=== PATIENT | male | born 2000 | race Caucasian/White ===

== ENCOUNTER 2019-10-30 04:41 | Inpatient (IN) ==
[2019-10-30] MEDS ORDERED: LIDOCAINE INFILT ONE (04:52)
[2019-10-30] MEDS ORDERED: EPINEPHRINE INFILT ONE (04:52)
[2019-10-30 05:25] LABS: Basophils % 0.2 %; Eosinophils # 0.1 K/mcL (0.0-0.6); Eosinophils % 0.7 %; Hematocrit 45.1 % (37.5-50.1); Hemoglobin 15.2 g/dL (12.9-16.9); Immature Granulocytes % 0.3 % (0-4); Lymphocytes # 2.2 K/mcL (0.6-4.6); Lymphocytes % 24.7 %; Mean Corpuscular HGB Conc 33.7 g/dL (31.6-35.5); Mean Corpuscular Volume 85.9 fL (83.0-100.0); Mean Platelet Volume 11.7 fL (9.4-12.4); Monocytes # 0.8 K/mcL (0.0-1.3); Monocytes % 9.6 %; Neutrophils # 5.7 K/mcL (1.6-8.9); Platelet Count 257 K/mcL (140-400); Red Blood Count 5.25 M/mcL (4.19-5.50); Red Cell Distribution Width 12.5 % (11.5-14.5); Segmented Neutrophils % 64.5 %; White Blood Count 8.8 K/mcL (4.3-11.1)
[2019-10-30] MEDS ORDERED: Lidocaine/EPI 1:100k 1% 30 ML VIAL INFILT ONE (05:25)
[2019-10-30] MEDS ORDERED: Bacitracin OINT PKT TP ONE (05:35)
[2019-10-30 05:47] LABS: Acetaminophen < 10 mcg/mL (10-20); BUN/Creatinine Ratio 8 (6-26); Blood Urea Nitrogen 7 mg/dL (6-20); Calcium 10.2 mg/dL (8.6-10.3); Carbon Dioxide 29 mEq/L (23-29); Chloride 99 mEq/L (98-107); Ethanol < 10 mg/dL (Less than 10); Glucose 104 mg/dL (70-105); Osmolality,Calculated 284 (280-300); Potassium 3.7 mEq/L (3.5-5.1); Salicylate < 2.5 mg/dL (15.0-30.0); Sodium 138 mEq/L (136-145); eGFR For African Americans > 60 (> 60); eGFR For Non-African Americans > 60 (> 60)
[2019-10-30 05:55] LABS: Amphetamine Screen,Urine Negative ng/mL (Cutoff=1000); Barbiturate Screen,Urine Negative ng/mL (Cutoff=200); Benzodiazepines Screen,Urine Negative ng/mL (Cutoff=200); Cannabinoid Screen,Urine Negative ng/mL (Cutoff = 50); Cocaine Screen,Urine Negative ng/mL (Cutoff= 300); Opiate Screen,Urine Negative ng/mL (Cutoff=300); Phencyclidine Screen,Urine Negative ng/mL (Cutoff=25)
[2019-10-30] MEDS ORDERED: *HR* LORazepam 1 MG TABLET PO PRN (07:57)
[2019-10-30] MEDS ORDERED: Acetaminophen 325 MG TABLET PO PRN (07:57)
[2019-10-30] MEDS ORDERED: Mag Hydrox/Al Hydrox/Simeth 30 ML UDC PO PRN (07:57)
[2019-10-30] MEDS ORDERED: MOM Conc 10 ML UD.LIQ PO PRN (07:57)
[2019-10-30] MEDS ORDERED: haloperidoL 5 MG TABLET PO PRN (07:57)
[2019-10-30] MEDS ORDERED: Haloperidol Lactate 5 MG/ML VIAL IM PRN (07:57)
[2019-10-30] MEDS ORDERED: QUEtiapine Fumarate 25 MG TABLET PO PRN (07:57)
[2019-10-30] MEDS ORDERED: *HR* LORazepam 2 MG/ML VIAL IM PRN (07:57)
[2019-10-30] MEDS ORDERED: Melatonin 3 MG TABLET PO SCH (21:00)
[2019-10-31 10:21] VITALS: BP 119/75
== END 2019-10-31 15:10 | disposition home or self-care (01) | DRG 384 ==
LOC: EMEROOARM 04:41 → 1ANU 07:55
PROVIDERS: ADMIT Psychiatry & Neurology Psychiatry; ATTEND Psychiatry & Neurology Psychiatry

== ENCOUNTER 2021-10-17 11:11 | Inpatient (IN) ==
[2021-10-17 11:54] LABS: Basophils % 0.4 %; Eosinophils # 0.2 K/mcL (0.0-0.6); Eosinophils % 2.4 %; Hemoglobin 14.7 g/dL (12.9-16.9); Immature Granulocytes % 0.3 % (0-4); Lymphocytes # 1.9 K/mcL (0.6-4.6); Lymphocytes % 27.8 %; Mean Corpuscular HGB Conc 33.4 g/dL (31.6-35.5); Mean Corpuscular Hemoglobin 29.8 pg (28.0-33.3); Mean Corpuscular Volume 89.1 fL (83.0-100.0); Mean Platelet Volume 11.8 fL (9.4-12.4); Monocytes # 0.6 K/mcL (0.0-1.3); Monocytes % 9.1 %; Neutrophils # 4.2 K/mcL (1.6-8.9); Platelet Count 212 K/mcL (140-400); Red Blood Count 4.94 M/mcL (4.19-5.50); Red Cell Distribution Width 12.4 % (11.5-14.5); White Blood Count 6.9 K/mcL (4.3-11.1)
[2021-10-17 12:00] LABS: Bilirubin,Urine Negative (Negative); Blood,Urine Negative (Negative); Clarity,Urine Clear (Clear); Color,Urine Colorless (Yellow); Glucose,Urine (UA) Normal (Normal); Ketones,Urine Negative (Negative); Leukocyte Esterase,Urine Negative (Negative); Nitrite,Urine Negative (Negative); Protein,Urine Negative (Neg-Trace); Specific Gravity,Urine 1.012 (1.010-1.025); Urobilinogen,Urine Normal (Normal)
[2021-10-17 12:30] LABS: Acetaminophen < 10 mcg/mL (10-20); BUN/Creatinine Ratio 13 (6-26); Blood Urea Nitrogen 11 mg/dL (6-20); Calcium 10.1 mg/dL (8.6-10.3); Carbon Dioxide 30 mEq/L (23-29); Chloride 101 mEq/L (98-107); Ethanol < 10 mg/dL (Less than 10); Glucose 117 mg/dL (70-105); Osmolality,Calculated 288 (280-300); Potassium 4.2 mEq/L (3.5-5.1); Salicylate < 2.5 mg/dL (15.0-30.0); Sodium 139 mEq/L (136-145); eGFR For African Americans > 60 (> 60); eGFR For Non-African Americans > 60 (> 60)
[2021-10-17 13:15] LABS: Amphetamine Screen,Urine Negative ng/mL (Cutoff=1000); Barbiturate Screen,Urine Negative ng/mL (Cutoff=200)
[2021-10-17 13:16] LABS: Benzodiazepines Screen,Urine Negative ng/mL (Cutoff=300); Cannabinoid Screen,Urine Positive ng/mL (Cutoff = 50); Cocaine Screen,Urine Negative ng/mL (Cutoff= 300); Opiate Screen,Urine Negative ng/mL (Cutoff=300); Phencyclidine Screen,Urine Negative ng/mL (Cutoff=25)
[2021-10-17] MEDS ORDERED: QUEtiapine Fumarate 25 MG TABLET PO PRN (16:14)
[2021-10-17] MEDS ORDERED: *HR* LORazepam 1 MG TABLET PO PRN (16:14)
[2021-10-17] MEDS ORDERED: haloperidoL 5 MG TABLET PO PRN (16:14)
[2021-10-17] MEDS ORDERED: Acetaminophen 325 MG TABLET PO PRN (16:14)
[2021-10-17] MEDS ORDERED: *HR* LORazepam 2 MG/ML VIAL IM PRN (16:14)
[2021-10-17] MEDS ORDERED: Haloperidol Lactate 5 MG/ML VIAL IM PRN (16:14)
[2021-10-17] MEDS ORDERED: MOM Conc 10 ML UD.LIQ PO PRN (16:14)
[2021-10-17 16:20] LABS: Influenza A PCR Negative (Negative); Influenza B PCR Negative (Negative); Resp. Syncytial Virus PCR Negative (Negative); SARS-CoV-2 by PCR (In House) Negative (Negative)
[2021-10-17] MEDS: hydrOXYzine pamoate 25 MG CAPSULE PO PRN (18:37)
[2021-10-18] MEDS: Vitamin B Complex/Vit C/Vit E 1 EACH TABLET PO SCH (09:51)
[2021-10-18] MEDS ORDERED: Acetaminophen/Aspirin/Caffeine TABLET PO PRN (10:12)
[2021-10-18] MEDS: hydrOXYzine pamoate 25 MG CAPSULE PO PRN (12:30)
[2021-10-18] MEDS: (Vortioxetine Hydrobromide [Trintellix] 20 MG Tablet) PO SCH (21:22)
[2021-10-19] MEDS: Vitamin B Complex/Vit C/Vit E 1 EACH TABLET PO SCH (10:23)
[2021-10-19] MEDS ORDERED: Mag Hydrox/Al Hydrox/Simeth 30 ML UDC PO PRN (16:27)
[2021-10-19] MEDS: hydrOXYzine pamoate 25 MG CAPSULE PO SCH (20:50)
[2021-10-19] MEDS: (Vortioxetine Hydrobromide [Trintellix] 20 MG Tablet) PO SCH (20:51)
[2021-10-20] MEDS: hydrOXYzine pamoate 25 MG CAPSULE PO SCH ×2 (09:31→21:20)
[2021-10-20] MEDS: BuPROPion XL (24 HR) 150 MG TABLET PO SCH (12:47)
[2021-10-20] MEDS: Triamcinolone Acet 0.1% CRM 15 GM TUBE TP SCH ×2 (17:18→21:21)
[2021-10-20] MEDS: (Vortioxetine Hydrobromide [Trintellix] 20 MG Tablet) PO SCH (21:20)
[2021-10-21] MEDS: hydrOXYzine pamoate 25 MG CAPSULE PO SCH (09:40)
[2021-10-21] MEDS: BuPROPion XL (24 HR) 150 MG TABLET PO SCH (09:40)
[2021-10-21] MEDS: Triamcinolone Acet 0.1% CRM 15 GM TUBE TP SCH ×2 (09:41→20:37)
[2021-10-21] MEDS: HydrOXYzine SYP 10 MG/5 ML UDC PO SCH ×2 (16:55→20:38)
[2021-10-21] MEDS: (Vortioxetine Hydrobromide [Trintellix] 20 MG Tablet) PO SCH (20:36)
[2021-10-22] MEDS: Triamcinolone Acet 0.1% CRM 15 GM TUBE TP SCH (08:53)
[2021-10-22] MEDS: BuPROPion XL (24 HR) 150 MG TABLET PO SCH (08:54)
[2021-10-22] MEDS: HydrOXYzine SYP 10 MG/5 ML UDC PO SCH (08:54)
[2021-10-22 09:23] VITALS: BP 123/75; PULSE 73; TEMP 96.8; O2SAT 99
== END 2021-10-22 13:00 | disposition home or self-care (01) | DRG 750 ==
LOC: EMEROOARM 11:11 → 1ANU 17:14
PROVIDERS: ADMIT Psychiatry & Neurology Forensic Psychiatry; ATTEND Psychiatry & Neurology Forensic Psychiatry